=== PATIENT | male | born 1995 | race Caucasian/White ===

== ENCOUNTER 2024-02-26 08:18 | Emergency (ER) | payer BC ==
[~2024-02-26] VITALS: Ht 188 cm; Wt 95.3 kg
[2024-02-26 08:22] VITALS: BP_SYST 123; PULSE 87; RESP 18; TEMP 98.1; O2SAT 99
[2024-02-26] MEDS ORDERED: LOM2.5 PO (08:55)
[2024-02-26] MEDS ORDERED: CIPR-260 PO (08:55)
[2024-02-26 09:06] VITALS: BP_SYST 123; PULSE 87; RESP 18; TEMP 98.1; O2SAT 99
== END 2024-02-26 09:07 | disposition home or self-care (01) ==
LOC: SED 08:18
DX: K52.9 Noninfective gastroenteritis and colitis, unspecified (principal); R11.0 Nausea; Z79.899 Other long term (current) drug therapy; Z79.2 Long term (current) use of antibiotics
CPT/HCPCS: 99283